=== PATIENT | female | born 1955 | race Caucasian/White ===

== ENCOUNTER 2024-05-21 21:34 | Emergency (ER) | payer MEDICARE ==
[~2024-05-21] VITALS: Ht 160 cm; Wt 63.5 kg
[2024-05-21] MEDS ORDERED: diphenhydrAMINE HCL 25 MG CAPSULE ONE (23:17)
[2024-05-21] MEDS: diphenhydrAMINE HCL 25 MG CAPSULE PO ONE (23:20)
[2024-05-21 23:39] VITALS: BP 95/55; TEMP 98; O2SAT 98
== END 2024-05-21 23:40 | disposition home or self-care (01) ==
LOC: ER 21:49
DX: R22.0 Localized swelling, mass and lump, head (principal); T36.8X5A Adverse effect of other systemic antibiotics, initial encounter; K21.9 Gastro-esophageal reflux disease without esophagitis; Z88.1 Allergy status to other antibiotic agents; Y92.89 Other specified places as the place of occurrence of the external cause
CPT/HCPCS: 99282; Q0163